=== PATIENT | female | born 1955 ===

== ENCOUNTER 2022-11-02 09:40 | Outpatient (CLI) | payer OTHER, SELFPAY ==
[2022-11-02 19:44] LABS: Hemoglobin 13.7 g/dL (12.0-15.0); Mean Corpuscular HGB Conc 31.9 g/dl (32-36); Mean Corpuscular Hemoglobin 28.2 pg (26-34); Mean Corpuscular Volume 88.5 fl (80-100); Mean Platelet Volume 9.5 fl (7.4-10.4); Platelet Count Result 404 k/mm3 (150-375); Red Blood Count 4.86 M/mm3 (4.2-5.4); Red Cell Distribution Width 13.8 % (11.5-14.5); White Blood Count 8.3 K/mm3 (4.5-10.0)
[2022-11-02 20:50] LABS: Hemoglobin A1C 8.7 % (<5.7)
[2022-11-02 20:52] LABS: Alanine Aminotransferase 22 U/L (6-35); Albumin Level 4.2 g/dL (3.5-5.1); Alkaline Phosphatase 90 U/L (38-126); Anion Gap 4 mmol/L (8-16); Aspartate Amino Transferase 43 U/L (14-36); Bilirubin,Total 0.4 mg/dL (0.2-1.3); Blood Urea Nitrogen 12 mg/dL (7-17); Calcium 8.9 mg/dL (8.4-10.2); Carbon Dioxide 31 mmol/L (22-30); Chloride 100 mmol/L (98-107); Cholesterol 210 mg/dL (0-200); Estimated Glomerular Filt Rate > 60; Glucose 167 mg/dL (65-110); HDL Direct 59 mg/dL; Potassium 3.3 mmol/L (3.4-5.0); Sodium 135 mmol/L (137-145); Triglycerides 139 mg/dL (<150)
[2022-11-02 21:06] LABS: LDL Cholesterol Direct 95 mg/dL
[2022-11-02 22:34] LABS: Creatinine Urine 87.5 mg/dL
[2022-11-02 22:41] LABS: MALB Creatinine Ratio 74.6 mg/g (0-30); Microalbumin Urine Random 65.3 mg/L (0-16.7)
== END 2022-11-02 09:41 | disposition home or self-care (01) ==
PROVIDERS: PCP Family Medicine; Visit Provider Family Medicine
DX: Z00.00 Encounter for general adult medical examination without abnormal findings (principal); E11.9 Type 2 diabetes mellitus without complications
CPT/HCPCS: 36415; 80053; 80061; 82043; 83036; 85027

== ENCOUNTER 2022-12-27 10:07 | Outpatient (CLI) | payer OTHER, SELFPAY ==
[2022-12-27 20:28] LABS: Alanine Aminotransferase 24 U/L (6-35); Albumin Level 4.1 g/dL (3.5-5.1); Alkaline Phosphatase 94 U/L (38-126); Anion Gap 7 mmol/L (8-16); Aspartate Amino Transferase 51 U/L (14-36); Bilirubin,Total 0.5 mg/dL (0.2-1.3); Blood Urea Nitrogen 14 mg/dL (7-17); Calcium 8.9 mg/dL (8.4-10.2); Carbon Dioxide 28 mmol/L (22-30); Chloride 102 mmol/L (98-107); Estimated Glomerular Filt Rate > 60; Glucose 285 mg/dL (65-110); Potassium 3.6 mmol/L (3.4-5.0); Sodium 137 mmol/L (137-145)
== END 2022-12-27 10:08 | disposition home or self-care (01) ==
LOC: ANHBWCLAB 10:08
PROVIDERS: PCP Family Medicine; Visit Provider Family Medicine
DX: E11.9 Type 2 diabetes mellitus without complications (principal); E87.5 Hyperkalemia; I10 Essential (primary) hypertension; R74.8 Abnormal levels of other serum enzymes
CPT/HCPCS: 36415; 80053

== ENCOUNTER 2023-02-06 11:26 | Outpatient (CLI) | payer OTHER, SELFPAY ==
[2023-02-06 19:00] LABS: Hemoglobin A1C 9.3 % (<5.7)
[2023-02-06 19:38] LABS: Creatinine Urine 15.8 mg/dL
[2023-02-06 19:43] LABS: MALB Creatinine Ratio 189.2 mg/g (0-30); Microalbumin Urine Random 29.9 mg/L (0-16.7)
== END 2023-02-06 11:27 | disposition home or self-care (01) ==
LOC: ANHBWCLAB 11:27
PROVIDERS: PCP Family Medicine; Visit Provider Family Medicine
DX: E11.9 Type 2 diabetes mellitus without complications (principal)
CPT/HCPCS: 36415; 82043; 83036

== ENCOUNTER 2023-05-23 09:49 | Outpatient (CLI) | payer OTHER, SELFPAY ==
[2023-05-23 19:32] LABS: Alanine Aminotransferase 31 U/L (6-35); Alkaline Phosphatase 101 U/L (38-126); Anion Gap 9 mmol/L (8-16); Aspartate Amino Transferase 46 U/L (14-36); Bilirubin,Total 0.5 mg/dL (0.2-1.3); Blood Urea Nitrogen 16 mg/dL (7-17); Calcium 9.8 mg/dL (8.4-10.2); Carbon Dioxide 30 mmol/L (22-30); Chloride 99 mmol/L (98-107); Cholesterol 211 mg/dL (0-200); Estimated Glomerular Filt Rate > 60; Glucose 251 mg/dL (65-110); HDL Direct 57 mg/dL; Potassium 3.1 mmol/L (3.4-5.0); Sodium 138 mmol/L (137-145); Triglycerides 148 mg/dL (<150)
[2023-05-23 19:43] LABS: LDL Cholesterol Direct 107 mg/dL
[2023-05-23 20:01] LABS: Hemoglobin A1C 12.4 % (<5.7)
[2023-05-24 20:17] LABS: Creatinine Urine 239.3 mg/dL
[2023-05-24 20:22] LABS: MALB Creatinine Ratio 35.9 mg/g (0-30); Microalbumin Urine Random 85.8 mg/L (0-16.7)
== END 2023-05-23 09:50 | disposition home or self-care (01) ==
PROVIDERS: PCP Nurse Practitioner Adult Health; Visit Provider Nurse Practitioner Adult Health
DX: E11.9 Type 2 diabetes mellitus without complications (principal); R74.8 Abnormal levels of other serum enzymes
CPT/HCPCS: 36415; 80048; 80061; 80076; 82043; 83036